=== PATIENT | female | born 1960 | race Caucasian/White ===

== ENCOUNTER 2024-06-26 11:37 | Outpatient (RCR) | payer BC, SELFPAY ==
[2024-06-26 11:53] VITALS: BP 116/49
[2024-06-26] MEDS: RECLAST 100 IV (12:11)
[2024-06-26 12:48] VITALS: BP 113/58
== END 2024-06-27 23:59 | disposition home or self-care (01) ==
LOC: OID 11:37
PROVIDERS: ATTENDING PHYSICIAN Internal Medicine
DX: M81.0 Age-related osteoporosis without current pathological fracture (principal)
CPT/HCPCS: 96365; J3489

== ENCOUNTER → 2024-07-14 16:45 | Outpatient (REF) | payer BC, SELFPAY | LOC: RAD 16:45 | PROVIDERS: ATTENDING PHYSICIAN Internal Medicine | DX: R07.81 Pleurodynia (principal); M81.0 Age-related osteoporosis without current pathological fracture | CPT/HCPCS: 71101 ==

== ENCOUNTER → 2025-01-17 13:00 | Outpatient (REF) | payer BC, SELFPAY | LOC: RCS 13:00 | PROVIDERS: ATTENDING PHYSICIAN Internal Medicine Cardiovascular Disease; FAMILY PHYSICIAN Internal Medicine | DX: I35.8 Other nonrheumatic aortic valve disorders (principal) | CPT/HCPCS: 93306 ==